=== PATIENT | female | born 2000 | race Caucasian/White ===

== ENCOUNTER → 2023-01-09 | Outpatient (CLI) | payer BC ==
[2023-01-09 16:44] LABS: HEMATOCRIT 40.9 % (37.0-47.0); HEMOGLOBIN 13.6 g/dl (12.5-16.0); MEAN CELL VOLUME 92 fl (80.0-100.0); MEAN CORPUSCULAR HEMOGLOBIN 30 pg (27-31); MEAN CORPUSCULAR HGB CONC 33 g/dl (33.0-37.0); MEAN PLATELET VOLUME 10.1 fl (7.4-10.4); PLATELET COUNT 210 K/mm3 (130-400); RED BLOOD COUNT 4.47 M/mm3 (4.10-5.30); REDCELL DISTRIBUTION WIDTH-CV 13.1 % (11.5-14.5)
[2023-01-09 17:03] LABS: ALBUMIN 3.9 gm/dL (3.5-5.0); BILIRUBIN,TOTAL 0.7 mg/dL (0.2-1.2); C-REACTIVE PROTEIN 0.27 mg/dL (0.00-0.50); CALCIUM 8.7 mg/dL (8.4-10.2); CREATININE, serum 0.79 mg/dL (0.57-1.11); POTASSIUM 4.1 mmol/L (3.5-4.5); TOTAL PROTEIN 7.5 gm/dL (6.2-8.1)
== END ==
LOC: COL.LAB 16:26
PROVIDERS: Nurse Practitioner
DX: K52.839 Microscopic colitis, unspecified (principal); R19.5 Other fecal abnormalities; R60.0 Localized edema

== ENCOUNTER → 2023-01-10 | Outpatient (CLI) | payer BC | LOC: COL.RAD 13:37 | DX: K52.839 Microscopic colitis, unspecified (principal); R19.5 Other fecal abnormalities; R60.0 Localized edema | CPT/HCPCS: Q9967 ==